=== PATIENT | male | born 1990 | race Caucasian/White ===

== ENCOUNTER 2016-09-04 00:55 | Emergency (ER) | payer OTHER ==
[~2016-09-04] VITALS: Ht 182.9 cm; Wt 149.7 kg
[~2016-09-04 00:55] MED LIST: METF1000 PO
[2016-09-04 01:00] VITALS: BP 147/93
--- NOTE | 2016-09-04 02:30 | NUR ---
TO ER BED 4
--- NOTE | 2016-09-04 02:45 | NUR ---
PATIENT PRESENTS TO ED WITH PAIN, SWELLING ON HIS NECK, FOR 3-4 DAYS, TRIED TO PRICKED AND PUS CAME OUT BUT STILL IN PAIN AND SWELLING. PT DENIES N/V/D; AAOX4 WITH EVEN AND STEADY GAIT; LUNGS CLEAR BL; HR EVEN AND REGULAR; PT DENIES ANY FEVER, CP, SOB, OR COUGH AT THIS TIME; PATIENT STATES PAIN OF 8/10 AT THIS TIME; VSS; PATIENT POSITIONED FOR COMFORT; HOB ELEVATED; BEDRAILS UP X2; BED DOWN. ER MD MADE AWARE OF PT STATUS.
[2016-09-04] MEDS ORDERED: LIDOCAINE 1% 500 MG/50 ML VIAL INJ ONE (02:55)
--- NOTE | 2016-09-04 03:30 | NUR ---
PROCEDURE BY DR GOMEZ PT TOLERATED WELL.
[2016-09-04 04:30] VITALS: BP 147/93
--- NOTE | 2016-09-04 04:30 | NUR ---
Patient discharged with v/s stable. Written and verbal after care instructions given and explained. Patient alert, oriented and verbalized understanding of instructions. Ambulatory with steady gait. All questions addressed prior to discharge. ID band removed. Patient advised to follow up with PMD. Rx of MOTRIN AND BACTRIM given. Patient educated on indication of medication including possible reaction and side effects. Opportunity to ask questions provided and answered.
[2016-09-07] MEDS ORDERED: IBUP-2213 PO (16:34)
== END 2016-09-04 04:30 | disposition home or self-care (01) ==
LOC: MED 00:55
DX: L02.11 Cutaneous abscess of neck (principal); L02.415 Cutaneous abscess of right lower limb; I10 Essential (primary) hypertension; E11.9 Type 2 diabetes mellitus without complications
CPT/HCPCS: 10061; 99284; J2001; 99283

== ENCOUNTER 2016-09-06 10:08 | Emergency (ER) | payer OTHER ==
[~2016-09-06] VITALS: Ht 182.9 cm; Wt 149.7 kg
[2016-09-06 10:14] VITALS: BP 137/90
--- NOTE | 2016-09-06 10:17 | NUR ---
Patient ambulated to bed 4. RN evaluating patient at bedside.
--- NOTE | 2016-09-06 10:17 | NUR ---
26/N BIB SELF FOR WOUND CHECK. PT HAS ABSCESS TO L NCEK. DENIES N/V/D; SKIN IS PINK/WARM/DRY; AAOX4 WITH EVEN AND STEADY GAIT; LUNGS CLEAR BL; HR EVEN AND REGULAR; PT DENIES ANY FEVER, CP, SOB, OR COUGH AT THIS TIME; PATIENT STATES PAIN OF 6/10 AT THIS TIME; VSS; PATIENT POSITIONED FOR COMFORT; HOB ELEVATED; BEDRAILS UP X2; BED DOWN. ER MD MADE AWARE OF PT STATUS.
--- NOTE | 2016-09-06 10:18 | NUR ---
Dr. Clark evaluating patient at bedside.
[2016-09-06] MEDS ORDERED: HYDROcodone/APAP 5/325 MG 1 TAB TAB PO ONE (10:25)
[2016-09-06] MEDS ORDERED: ceFAZolin 1,000 MG VIAL IM ONE (10:25)
[2016-09-06] MEDS ORDERED: WATER STERILE 10 ML MC ONE (10:38)
[2016-09-06 10:48] VITALS: BP 129/88
--- NOTE | 2016-09-06 10:48 | NUR ---
Patient discharged with v/s stable. Written and verbal after care instructions given and explained. Patient verbalized understanding. Ambulatory with steady gait. All questions addressed prior to discharge. Advised to follow up with PMD.
[2016-09-07] MEDS ORDERED: [UNRECOGNIZED DRUG - REMARK] (16:34)
[2016-09-07] MEDS ORDERED: IBUP-2213 PO (16:34)
== END 2016-09-06 10:48 | disposition home or self-care (01) ==
LOC: MED 10:08
DX: Z48.01 Encounter for change or removal of surgical wound dressing (principal); E11.9 Type 2 diabetes mellitus without complications; I10 Essential (primary) hypertension
CPT/HCPCS: 96372; 99283; J0690

== ENCOUNTER 2016-09-07 16:00 | Emergency (ER) | payer OTHER ==
[~2016-09-07] VITALS: Ht 182.9 cm; Wt 142.9 kg
[~2016-09-07 16:00] MED LIST changes: +GLUCOPHAGE1000 MG PO; -METF1000 PO; +[UNRECOGNIZED DRUG - OTHER]
[2016-09-07 16:30] VITALS: BP 147/94
[2016-09-07] MEDS ORDERED: MOTRIN600 MG PO (16:34)
[2016-09-07] MEDS ORDERED: [UNRECOGNIZED DRUG - REMARK] (16:34)
--- NOTE | 2016-09-07 16:37 | NUR ---
PT AMBULATE TO BED 4.
--- NOTE | 2016-09-07 16:40 | NUR ---
26/M BIB SELF C/O LEFT NECK WOUND RECHECK; PT STATES WAS FIRST SEEN AT [facility] FOR [facility] DRAINAGE SUNDAY, THEN YESTERDAY, AND BACK TODAY. HX HTN AND DIABETES. PT STATES WENT TO URGENT CARE THIS AM, AND "DIDN'T LIKE THE WAY THEY PACKED THE WOUND" SO PT CAME TO ER TO GET WOUND RE-CHECKED; WOUND PACKED AT THIS TIME. PT DENIES PAIN TO SITE AT THIS TIME; PT DENIES N/V/D AT THIS TIME; A&OX4, PERRLA, BL LUNG SOUNDS CLEAR, RR EVEN/UNLABORED, SKIN IS WARM/DRY; PT RESTING IN BED W/ HOB ELEVATED AND IN LOWEST POSITION; POSITIONED FOR COMFORT; ER MD MADE AWARE OF STATUS. WILL CONTINUE TO MONITOR.
[2016-09-07 17:26] VITALS: BP 147/94
== END 2016-09-07 17:27 | disposition home or self-care (01) ==
LOC: MED 16:00
DX: Z48.01 Encounter for change or removal of surgical wound dressing (principal)

== ENCOUNTER 2017-10-17 03:13 | Emergency (ER) | payer OTHER ==
[~2017-10-17] VITALS: Ht 182.9 cm; Wt 149.7 kg
[~2017-10-17 03:13] MED LIST changes: -GLUCOPHAGE1000 MG PO; +METF1000 PO; -[UNRECOGNIZED DRUG - OTHER]
[2017-10-17 03:14] VITALS: BP 173/115
--- NOTE | 2017-10-17 03:19 | NUR ---
Patient ambulated to bed 4. RN evaluating patient at bedside.
[2017-10-17] MEDS ORDERED: SULFAMETH/TRIMETH DS 800/160MG 1 TAB PO ONE (03:25)
[2017-10-17] MEDS ORDERED: CEPHALEXIN 500 MG CAP PO ONE (03:25)
--- NOTE | 2017-10-17 03:25 | NUR ---
27/M CAME IN ED, C/O 01/23 R GROIN PAIN, NONRADIATING, X1 WEEK. R GROIN ABSCESS NOTED PER MD, +REDNESS, +SWELLING. SKIN IS INTACT, PINK/WARM/DRY; AAOX4, PERRL, WITH EVEN AND STEADY GAIT; LUNGS CLEAR BL, BREATHING UNLABORED; HR EVEN AND REGULAR, BL PERIPHERAL PULSES PRESENT; BS ACTIVE X4, NO TENDERNESS TO PALPATION; PT DENIES ANY FEVER, CP, SOB, OR COUGH AT THIS TIME; PATIENT POSITIONED FOR COMFORT; HOB ELEVATED; BEDRAILS UP X2; BED DOWN. DR APRRA AT BEDSIDE TO EVALUATE PT.
[2017-10-17 03:49] VITALS: BP 133/69
--- NOTE | 2017-10-17 03:50 | NUR ---
Patient discharged with v/s stable. Written and verbal after care instructions given and explained. Patient alert, oriented and verbalized understanding of instructions. Ambulatory with steady gait. All questions addressed prior to discharge. ID band removed. Patient advised to follow up with PMD. Rx of BACTRIM, KEFLEX given. Patient educated on indication of medication including possible reaction and side effects. Opportunity to ask questions provided and answered.
== END 2017-10-17 03:50 | disposition home or self-care (01) ==
LOC: MED 03:13
DX: N48.21 Abscess of corpus cavernosum and penis (principal); E11.9 Type 2 diabetes mellitus without complications; I10 Essential (primary) hypertension
CPT/HCPCS: 99283